=== PATIENT | female | born 1955 | race Caucasian/White ===

== ENCOUNTER 2018-12-26 13:49 | Emergency (ER) | payer OTHER ==
[~2018-12-26] VITALS: Ht 165.1 cm; Wt 95.7 kg
[~2018-12-26 13:49] MED LIST: ACET650SUP; IBUP400; META800; OXYACE7.5T PO; RXOXYACE PO
[2018-12-26] MEDS ORDERED: Omeprazole20 M1 PO (15:32)
== END 2018-12-26 15:40 | disposition home or self-care (01) ==
LOC: ER 13:49
DX: R21 Rash and other nonspecific skin eruption (principal); L29.9 Pruritus, unspecified; I10 Essential (primary) hypertension; F17.210 Nicotine dependence, cigarettes, uncomplicated; Z88.0 Allergy status to penicillin
CPT/HCPCS: 96372; 99282-25; J2930

== ENCOUNTER → 2020-12-22 | Outpatient (CLI) | payer OTHER ==
[~2020-12-22] MED LIST changes: +BUPROPION XL150 M1 PO; +GABA300 PO; +IBUP800 PO; +MELO7.5; +MELO7.5 PO; +METO50ER PO; +Norco 10-325 T1 EACH PO; +Omeprazole20 M1 PO; +Prinivil10 MG PO
[2021-01-02 10:08] LABS: COTININE 17.4 ng/mL (.); NICOTINE 20.2 ng/mL (.)
== END | disposition home or self-care (01) ==
LOC: LAB SHORT 13:10 → LAB 13:10
PROVIDERS: Ophthalmology
DX: F17.211 Nicotine dependence, cigarettes, in remission (principal)
CPT/HCPCS: G0480

== ENCOUNTER 2021-01-29 06:47 | Day surgery (SDC) | payer OTHER ==
[~2021-01-29] VITALS: Ht 165.1 cm; Wt 97.1 kg
[~2021-01-29 06:47] MED LIST changes: -MELO7.5
== END 2021-01-29 08:41 | disposition home or self-care (01) ==
LOC: ORSCSDS 06:47
PROVIDERS: Ophthalmology
PROC: 08RJ3JZ Replacement of Right Lens with Synthetic Substitute, Percutaneous Approach (ICD-10-PCS; principal; 2021-01-29 08:00)
DX: H25.11 Age-related nuclear cataract, right eye (principal); I10 Essential (primary) hypertension; E66.9 Obesity, unspecified; Z68.35 Body mass index [BMI] 35.0-35.9, adult; Z79.899 Other long term (current) drug therapy
CPT/HCPCS: A9270; J2001; J2250; J3010; J3301; J7040; V2632

== ENCOUNTER 2021-02-05 05:02 | Day surgery (SDC) | payer OTHER ==
[~2021-02-05] VITALS: Ht 165.1 cm; Wt 97.5 kg
--- NOTE | 2021-02-05 07:07 | NUR ---
02/05/21 0707 Riana Jennings 0706 DROP TETRACAIN IN
[2021-02-05] MEDS ORDERED: MELO7.5 (07:09)
== END 2021-02-05 08:50 | disposition home or self-care (01) ==
LOC: ORSCSDS 05:02
PROVIDERS: Ophthalmology
PROC: 08RK3JZ Replacement of Left Lens with Synthetic Substitute, Percutaneous Approach (ICD-10-PCS; principal; 2021-02-05 08:00)
DX: H25.12 Age-related nuclear cataract, left eye (principal); I10 Essential (primary) hypertension; G62.9 Polyneuropathy, unspecified; Z79.899 Other long term (current) drug therapy
CPT/HCPCS: A9270; J2001; J2250; J3010; J3301; J7040; V2632

== ENCOUNTER 2022-10-04 17:47 | Inpatient (IN) | payer OTHER ==
[~2022-10-04] VITALS: Ht 165.1 cm; Wt 105.5 kg
[~2022-10-04 17:47] MED LIST changes: +MELO7.5
[2022-10-04 18:52] LABS: BASOPHILS ABSOLUTE AUTO 0.04 K/mm3 (0.00-0.23); BASOPHILS PERCENT AUTO 0 % (0-2); EOSINOPHILS ABSOLUTE AUTO 0.18 K/mm3 (0.00-0.68); EOSINOPHILS PERCENT AUTO 1 % (0-6); Hematocrit 41.5 % (33.0-51.0); Hemoglobin 13.5 g/dL (11.5-16.0); IMMATURE GRAN ABSOLUTE AUTO 0.06 K/mm3 (0.00-0.10); IMMATURE GRAN PERCENT AUTO 1 % (0-1); LYMPHOCYTES ABSOLUTE AUTO 1.59 K/mm3 (0.84-5.20); LYMPHOCYTES PERCENT AUTO 12 % (21-46); MONOCYTES ABSOLUTE AUTO 1.38 K/mm3 (0.16-1.47); MONOCYTES PERCENT AUTO 11 % (4-13); Mean Corpuscular HGB 29.6 pg (26.0-34.0); Mean Corpuscular HGB Conc 32.5 g/dL (31.5-36.5); Mean Corpuscular Volume 91 fL (80-100); Mean Platelet Volume 11.2 fL (9.1-12.4); NEUTROPHILS ABSOLUTE AUTO 9.65 K/mm3 (1.96-9.15); NEUTROPHILS PERCENT AUTO 75 % (41-73); Platelet Count 254 K/mm3 (150-400); RDW Coefficient Variation 14.4 % (11.7-14.2); RDW Standard Deviation 48.2 fL (35.1-46.3); Red Blood Cell Count 4.56 M/mm3 (3.80-5.20)
[2022-10-04 19:09] LABS: Albumin, Blood 3.6 g/dL (3.4-5.0); Bun/Creatinine Ratio 18.2 (12.0-20.0); Creatinine, Blood 0.55 mg/dL (0.40-1.00); Globulin, Blood 3.7 g/dL (2.2-4.0); Total Protein, Blood 7.3 g/dL (6.4-8.2)
[2022-10-04 19:20] LABS: Influenza A, PCR NEGATIVE (NEGATIVE); Influenza B, PCR NEGATIVE (NEGATIVE); Resp Syncytial Virus, PCR NEGATIVE (NEGATIVE); SARS-Cov-2 (COVID-19) PCR, MMC NEGATIVE (NEGATIVE)
[2022-10-05 07:14] LABS: BASOPHILS ABSOLUTE AUTO 0.01 K/mm3 (0.00-0.23); BASOPHILS PERCENT AUTO 0 % (0-2); EOSINOPHILS ABSOLUTE AUTO 0.01 K/mm3 (0.00-0.68); EOSINOPHILS PERCENT AUTO 0 % (0-6); Hematocrit 40.6 % (33.0-51.0); Hemoglobin 13.4 g/dL (11.5-16.0); IMMATURE GRAN ABSOLUTE AUTO 0.02 K/mm3 (0.00-0.10); IMMATURE GRAN PERCENT AUTO 0 % (0-1); LYMPHOCYTES ABSOLUTE AUTO 0.58 K/mm3 (0.84-5.20); LYMPHOCYTES PERCENT AUTO 7 % (21-46); MONOCYTES ABSOLUTE AUTO 0.15 K/mm3 (0.16-1.47); MONOCYTES PERCENT AUTO 2 % (4-13); Mean Corpuscular HGB 29.7 pg (26.0-34.0); Mean Corpuscular Volume 90 fL (80-100); Mean Platelet Volume 11.3 fL (9.1-12.4); NEUTROPHILS ABSOLUTE AUTO 8.02 K/mm3 (1.96-9.15); NEUTROPHILS PERCENT AUTO 91 % (41-73); Platelet Count 249 K/mm3 (150-400); RDW Coefficient Variation 14.6 % (11.7-14.2); Red Blood Cell Count 4.51 M/mm3 (3.80-5.20); White Blood Cell Count 8.79 K/mm3 (4.00-11.30)
[2022-10-05 07:29] LABS: Albumin, Blood 3.4 g/dL (3.4-5.0); Albumin/Globulin Ratio 0.9 (0.8-1.8); Bilirubin, Total 0.8 mg/dL (0.1-1.0); Bun/Creatinine Ratio 27.8 (12.0-20.0); Calcium, Blood 9.3 mg/dL (8.5-10.1); Creatinine, Blood 0.58 mg/dL (0.40-1.00); Globulin, Blood 3.7 g/dL (2.2-4.0); Potassium, Blood 3.9 mmol/L (3.5-5.5); Total Protein, Blood 7.1 g/dL (6.4-8.2)
--- NOTE | 2022-10-05 16:58 | NUR ---
ARRIVED PT ARRIVED FROM ER TO PCU AT 1528. THIS RN ASSUMED CARE, REPORT RECEIVED REPORT FROM HARISH. PT A&O X4, INTERACTING AND RESPONDING APPROPRIATELY. ON 3 L O2 VIA NC; O2 SATS 96%. PT DENIES SOB, REPORTS MILD SOB WITH EXERTION BUT "NOT MUCH". THIS RN NOTES MILD DYSPNEA WITH EXERTION. DENIES CHEST PAIN, PRESSURE OR PALPITATIONS. VSS. PT TRANSFERRED TO PCU BED WITH MINIMAL ASSISTANCE, MOSTLY VERBAL QUES. PT ORIENTED TO ROOM AND CALL LIGHT IN REACH.
--- NOTE | 2022-10-05 18:51 | NUR ---
SHIFT SUMMARY NO ACUTE CHANGES THROUGHOUT REST OF SHIFT. PT RESTED ON AND OFF. PT LUNG SOUNDS WHEEZY AND COARSE. PT HAS DRY COUGH, REPORTS IS NOT NEW. CONTINUES TO DENY SOB OR DIFFICULTY BREATHING. MILD SOB NOTED WITH ACTIVITY. FAMILY AT BEDSIDE VISITING. CALL LIGHT IN REACH
--- NOTE | 2022-10-05 19:20 | NUR ---
ASSUMED CARE OF PT PT IS UP TO TOILET WITH ASSISTANCE OF PCT. WILL ASSESS FURTHER WITH HS MED ADMINISTRATION. SHE DENIES OTHER NEEDS AT THIS TIME.
[2022-10-06 04:22] LABS: BASOPHILS ABSOLUTE AUTO 0.03 K/mm3 (0.00-0.23); BASOPHILS PERCENT AUTO 0 % (0-2); EOSINOPHILS PERCENT AUTO 0 % (0-6); Hematocrit 40.7 % (33.0-51.0); Hemoglobin 13.3 g/dL (11.5-16.0); IMMATURE GRAN ABSOLUTE AUTO 0.13 K/mm3 (0.00-0.10); IMMATURE GRAN PERCENT AUTO 1 % (0-1); LYMPHOCYTES PERCENT AUTO 6 % (21-46); MONOCYTES PERCENT AUTO 2 % (4-13); Mean Corpuscular HGB 30.1 pg (26.0-34.0); Mean Corpuscular HGB Conc 32.7 g/dL (31.5-36.5); Mean Corpuscular Volume 92 fL (80-100); Mean Platelet Volume 11.1 fL (9.1-12.4); NEUTROPHILS ABSOLUTE AUTO 16.66 K/mm3 (1.96-9.15); NEUTROPHILS PERCENT AUTO 91 % (41-73); Platelet Count 266 K/mm3 (150-400); RDW Coefficient Variation 14.6 % (11.7-14.2); RDW Standard Deviation 49.2 fL (35.1-46.3); Red Blood Cell Count 4.42 M/mm3 (3.80-5.20); White Blood Cell Count 18.32 K/mm3 (4.00-11.30)
[2022-10-06 04:38] LABS: Bun/Creatinine Ratio 49.9 (12.0-20.0); Calcium, Blood 9.1 mg/dL (8.5-10.1); Creatinine, Blood 0.84 mg/dL (0.40-1.00); Potassium, Blood 4.1 mmol/L (3.5-5.5)
--- NOTE | 2022-10-06 05:45 | NUR ---
PT APPEARS TO SLEEP MOST OF THE NOC AND SHE REPORTS THAT HER BREATHING FEELS GREATLY IMPROVED FROM THE PAST 3 WEEKS. SHE STATES THAT IF FEELS GOOD TO FINALLY BE ABLE TO GET SOME SLEEP SHE HAS HAD POOR SLEEP FOR THE DURATION OF HER ILLNESS. SATS MAINTAIN WITH OXYGEN VIA NASAL CANNULA AT 3 L/MIN, MID 90S WITH SLEEP, WHEN NASAL CANNULA COMES OUT OF NARES DURING SLEEP SHE IS NOTED TO DESAT TO 85% INTERMITTENTLY. UP TO BATHROOM WITH STEADY GAIT AND SBA FOR LINE MANAGEMENT AND SAFETY, TOLERATES WELL. SHE CONINUES IN AFIB HOWEVER RATE AT REST HAS BEEN 60S THROUGHOUT NOC. RATE DOES INCREASE TO 80-90S WITH UP TO BATHROOM. WILL CONTINUE TO MONITOR AND REPORT TO ONCOMING SHIFT.
--- NOTE | 2022-10-06 18:51 | NUR ---
PT REPORTS IMPROVEMENT IN WORK OF BREATHING, HER COUGH HAS BECOME MORE PRODUCTIVE. PT HAS BEEN MADE MEDICAL STATUS WITH TELE, PLAN IS FOR LIKELY D/C IN THE AM. VSS. PT INDEPENDANT IN THE ROOM TO BATHROOM AND REPOSITIONING. PT PROVIDED WITH ORAL SUCTION SETUP COUGH IS QUITE PRODUCTIVE. PT HAS BEEN CHANGED TO ROOM AIR DURING THIS SHIFT WITH SPOW >92%. VSS. NADN. SKIN PWD AND INTACT. LS REMAIN COARSE TO DIM THROUGHOUT
--- NOTE | 2022-10-06 21:08 | NUR ---
ASSUMPTION OF CARE THIS RN ASSUMED CARE OF PATIENT AT 1900. REPORT TAKEN FROM HARISH MCKENZIE. PATIENT IS ALERT AND ORIENTED FULLY. PATIENT CONTINUES TO BE IN AFIB WITH HR 60-80S. BP STABLE. AFEBRILE. PT WITH PRODUCTIVE COUGH. EXPIRATORY WHEEZES AUSCULTATED THROUGHOUT. PRN BREATHING TREATMENTS. PATIENT ON RA WITH O2 SATS 92-94%. DESATTING TO HIGH 80S NOTED WITH CONVERSATION AND COUGHING. PATIENT DENIES PAIN AT THIS TIME. ABLE TO MAKE NEEDS KNOWN AND CALLS APPROPRIATELY. INDEPENDENT WITH ADL'S. BED IN LOWEST POSITION AND CALL LIGHT WITHIN REACH. THIS RN WILL REVIEW CHART AND CONTINUE TO MONITOR AND PROVIDE INTERVENTIONS NEEDED/ORDERED.
[2022-10-07 03:48] LABS: BASOPHILS ABSOLUTE AUTO 0.01 K/mm3 (0.00-0.23); BASOPHILS PERCENT AUTO 0 % (0-2); EOSINOPHILS PERCENT AUTO 0 % (0-6); Hemoglobin 13.7 g/dL (11.5-16.0); IMMATURE GRAN ABSOLUTE AUTO 0.15 K/mm3 (0.00-0.10); IMMATURE GRAN PERCENT AUTO 1 % (0-1); LYMPHOCYTES ABSOLUTE AUTO 1.02 K/mm3 (0.84-5.20); LYMPHOCYTES PERCENT AUTO 5 % (21-46); MONOCYTES ABSOLUTE AUTO 0.44 K/mm3 (0.16-1.47); MONOCYTES PERCENT AUTO 2 % (4-13); Mean Corpuscular HGB 29.6 pg (26.0-34.0); Mean Corpuscular HGB Conc 32.6 g/dL (31.5-36.5); Mean Corpuscular Volume 91 fL (80-100); Mean Platelet Volume 11.5 fL (9.1-12.4); NEUTROPHILS ABSOLUTE AUTO 18.04 K/mm3 (1.96-9.15); NEUTROPHILS PERCENT AUTO 92 % (41-73); Platelet Count 307 K/mm3 (150-400); RDW Coefficient Variation 14.6 % (11.7-14.2); RDW Standard Deviation 48.8 fL (35.1-46.3); Red Blood Cell Count 4.63 M/mm3 (3.80-5.20); White Blood Cell Count 19.66 K/mm3 (4.00-11.30)
[2022-10-07 04:03] LABS: Bun/Creatinine Ratio 51.2 (12.0-20.0); Creatinine, Blood 1.29 mg/dL (0.40-1.00); Potassium, Blood 4.3 mmol/L (3.5-5.5)
--- NOTE | 2022-10-07 05:12 | NUR ---
SHIFT SUMMARY NO ACUTE CHANGES DURING THIS SHIFT. PATIENT PLACED ON 1L OF O2 DURING THE NIGHT DUE TO DESATTING INTO THE MID 80'S AND NOT RECOVERING WHILE SLEEPING. PT DYSPNEIC WITH EXERTION AND CONVERSATION. BP STABLE. AFEBRILE. PRODUCTIVE COUGH WITH YELLOW/THICK SPUTUM. PT DENIES PAIN. INDEPENDENT WITH ADL'S. ALERT AND ORIENTED FULLY. ABLE TO MAKE NEEDS KNOWN. MEDICATING PER EMAR. PATIENT APPEARS TO BE SLEEPING AT THIS TIME WITH BED IN LOWEST POSITION AND CALL LIGHT WITHIN REACH. THIS RN WILL CONTINUE TO MONITOR AND PROVIDE INTERVENTIONS NEEDED/ORDERED UNTIL SHIFT CHANGE AT 0700.
[2022-10-07] MEDS ORDERED: LATA.005SO BOTHEYES (06:50)
[2022-10-07] MEDS ORDERED: ELIQUIS5 M2 PO (16:12)
[2022-10-07] MEDS ORDERED: DILTIAZEM 24HR300 M2 PO (16:16)
[2022-10-07] MEDS ORDERED: Prednisone20 MG PO (16:17)
[2022-10-07] MEDS ORDERED: CODEINE-GUAIFE120 M1 PO (16:18)
--- NOTE | 2022-10-07 18:31 | NUR ---
PT D/C HOME WITH SON. PHARMACIST TRAV WAS CONSULTED AND PT WAS DOSED WITH ELIQUIS PRIOR TO LEAVING SHE WAS NOT GOING TO BE ABLE TO MAKE IT TO HER PHARMACY TONIGHT TO GET HER ELIQUIS. PT EXPRESSED UNDERSTANDING OF DC TEACHING AND DENIES FURTHER NEEDS. SHE IS MADE AWARE OF FOLLOW UP APPOINTMENT
== END 2022-10-07 17:41 | disposition home or self-care (01) | DRG 291 ==
LOC: ER 17:47 → ERHOLD 10-05 02:53 → ER 10-05 02:53 → ERHOLD 10-05 02:53 → PCU 10-05 02:53 → ERHOLD 10-05 15:21 → PCU 10-05 15:21 → ERHOLD 10-06 15:42 → PCU 10-06 15:42
PROVIDERS: Emergency Medicine; Family Medicine; ADMIT Family Medicine
DX: I11.0 Hypertensive heart disease with heart failure (principal); I50.33 Acute on chronic diastolic (congestive) heart failure; J96.01 Acute respiratory failure with hypoxia; J44.1 Chronic obstructive pulmonary disease with (acute) exacerbation; I48.91 Unspecified atrial fibrillation; F41.9 Anxiety disorder, unspecified; M16.10 Unilateral primary osteoarthritis, unspecified hip; D72.829 Elevated white blood cell count, unspecified; R73.03 Prediabetes; I25.10 Atherosclerotic heart disease of native coronary artery without angina pectoris; E78.5 Hyperlipidemia, unspecified; Z20.822 Contact with and (suspected) exposure to COVID-19; F17.210 Nicotine dependence, cigarettes, uncomplicated; Z88.0 Allergy status to penicillin; Z88.8 Allergy status to other drugs, medicaments and biological substances; Z79.899 Other long term (current) drug therapy; Z79.811 Long term (current) use of aromatase inhibitors; Z98.42 Cataract extraction status, left eye; Z98.41 Cataract extraction status, right eye
CPT/HCPCS: 0241U; 36415; 71046; 80048; 80053; 83880; 84145; 84484; 85025; 87449; 93005; 93010; 93306; 94640; 94644; 94645; 94664; 94760; 94762; 96365; 96366; 96367; 96372-59; 96375; 96376; 99285-25; A9270; G0378; J1650; J1940; J1956; J2930

== ENCOUNTER → 2022-10-14 | Outpatient (CLI) | payer OTHER ==
[~2022-10-14] MED LIST changes: +CODEINE-GUAIFE120 M1 PO; +DILTIAZEM 24HR300 M2 PO; +ELIQUIS5 M2 PO; +LATA.005SO BOTHEYES; +Prednisone20 MG PO
[2022-10-14 14:31] LABS: BASOPHILS ABSOLUTE AUTO 0.07 K/mm3 (0.00-0.23); BASOPHILS PERCENT AUTO 0 % (0-2); EOSINOPHILS ABSOLUTE AUTO 0.23 K/mm3 (0.00-0.68); EOSINOPHILS PERCENT AUTO 1 % (0-6); IMMATURE GRAN ABSOLUTE AUTO 0.54 K/mm3 (0.00-0.10); IMMATURE GRAN PERCENT AUTO 3 % (0-1); LYMPHOCYTES ABSOLUTE AUTO 3.11 K/mm3 (0.84-5.20); LYMPHOCYTES PERCENT AUTO 16 % (21-46); MONOCYTES ABSOLUTE AUTO 1.71 K/mm3 (0.16-1.47); MONOCYTES PERCENT AUTO 9 % (4-13); Mean Corpuscular HGB 30.4 pg (26.0-34.0); Mean Corpuscular HGB Conc 32.5 g/dL (31.5-36.5); Mean Corpuscular Volume 94 fL (80-100); Mean Platelet Volume 10.8 fL (9.1-12.4); NEUTROPHILS PERCENT AUTO 71 % (41-73); Platelet Count 300 K/mm3 (150-400); RDW Coefficient Variation 14.6 % (11.7-14.2); RDW Standard Deviation 49.9 fL (35.1-46.3); Red Blood Cell Count 4.28 M/mm3 (3.80-5.20); White Blood Cell Count 19.46 K/mm3 (4.00-11.30)
[2022-10-14 14:43] LABS: Albumin/Globulin Ratio 0.8 (0.8-1.8); Bilirubin, Total 0.4 mg/dL (0.1-1.0); Bun/Creatinine Ratio 21.1 (12.0-20.0); Calcium, Blood 8.8 mg/dL (8.5-10.1); Creatinine, Blood 0.76 mg/dL (0.40-1.00); Globulin, Blood 3.7 g/dL (2.2-4.0); Potassium, Blood 4.9 mmol/L (3.5-5.5); Total Protein, Blood 6.7 g/dL (6.4-8.2)
== END | disposition home or self-care (01) ==
LOC: LAB SHORT 14:27 → LAB 14:27
PROVIDERS: Physician Assistant Surgical
DX: R10.9 Unspecified abdominal pain (principal); R53.83 Other fatigue
CPT/HCPCS: 80053; 82150; 84484; 85025